=== PATIENT | female | born 1985 | race Caucasian/White ===

== ENCOUNTER 2018-06-29 12:45 | Outpatient (CLI) | payer BC ==
[~2018-06-29] VITALS: Ht 154.9 cm; Wt 62.2 kg
[2018-06-29 13:33] VITALS: BP 97/55; PULSE 82; RESP 18
[2018-06-29 13:36] VITALS: Ht 154.9 cm; Wt 62.2 kg
--- NOTE | 2018-06-29 19:53 | PN ---
Triage Information Date/Time Reason for visit: Generalized itching Weeks of Gestation 34 weeks /Para Diabetes: none Hypertention: none Objective Vital Signs Date Temp Pulse Resp B/P (MAP) Pulse Ox O2 O2 Flow FiO2 Time Delivery Rate 06/29/18 97.9 82 18 97/55 (69) 98 Room Air 13:33 Heart Rate: 120's Heart Rate Comments Reactive Results/Medications Imaging Results BPP 10/27 Disposition: Discharge Assessment/Plan Bile acids drawn in clinic today, result pending Antepartum testing on 07/01/2018. LIZZETH FRANK MD Jun 29, 2018 19:53
== END 2018-06-29 17:45 | disposition home or self-care (01) ==
LOC: L-D 12:45 → OBT 12:45
PROVIDERS: ATTEND Obstetrics & Gynecology
DX: O26.893 Other specified pregnancy related conditions, third trimester (principal); L29.9 Pruritus, unspecified; Z3A.34 34 weeks gestation of pregnancy
CPT/HCPCS: 76815; 76818; 76820; Z7500; G0463

== ENCOUNTER 2018-07-01 09:11 | Outpatient (CLI) | payer BC ==
[~2018-07-01] VITALS: Ht 154.9 cm; Wt 62.6 kg
[2018-07-01] MEDS ORDERED: PNV11TAB PO (09:41)
[2018-07-01 09:42] VITALS: BP 102/57; PULSE 79; Ht 154.9 cm; Wt 62.6 kg
--- NOTE | 2018-07-01 11:53 | TRIAGE ---
OB Triage Datetime Report Generated by CPN: 07/01/2018 11:53 Datetime: 07/01/2018 11:04 Stage of : OB Triage Datetime: 07/01/2018 10:52 Stage of : OB Triage Datetime: 07/01/2018 10:48 Stage of : OB Triage Datetime: 07/01/2018 10:39 Stage of : OB Triage Datetime: 07/01/2018 10:33 Labor Evaluation Frequency: 0 Monitor Mode: External Pattern: Normal: <= 5 Contractions in 10 Minutes Resting Tone [place]: Relaxed Heart Rate FHR Baseline Rate: 135 Monitor Mode: External US Variability: Moderate 6-25 bpm Accelerations: 10X10 Decelerations: None Category: Category I Pain Assessment Pain Scale: 0 Pain Presence: None/Denies Pain Type: N/A Pain Goal: 3 Pain Relief Measures: Comfort Measures Datetime: 07/01/2018 09:51 Stage of : OB Triage Datetime: 07/01/2018 09:34 Stage of : OB Triage Assessment Type: Triage Maternal Assessment Level of Consciousness: Fully Conscious DTR's/Clonus: DTRs 2+; No Clonus Headache: Denies Blurred Vision: No Respiratory Effort: Unlabored; Regular Rhythm; Equal Expansion Breath Sounds, Left: Clear and Equal Breath Sounds, Right: Clear and Equal Nausea/Vomiting: Denies RUQ Epigastric Pain: Denies Facial Edema: None Temperature Route: Axillary Fall Risk Assessment History of Falling: (0) No Secondary Diagnosis: (0) No Ambulatory Aid: (0) Bedrest/Nurse Assist IV Therapy: (0) No Gait: (0) Normal/Bedrest/Immobile Mental Status: (0) Oriented to Own Ability Fall Score: 0 Fall Risk Score Definition: No Risk: No action required Labor Evaluation Frequency: 0 Monitor Mode: External Pattern: Normal: <= 5 Contractions in 10 Minutes Resting Tone [place]: Relaxed Heart Rate FHR Baseline Rate: 140 Monitor Mode: External US Variability: Moderate 6-25 bpm Accelerations: 10X10 Decelerations: None Category: Category I Pain Assessment Pain Scale: 0 Pain Presence: None/Denies Pain Type: N/A Pain Goal: 3 Pain Relief Measures: Comfort Measures Datetime: 07/01/2018 09:32 Time of Arrival: 07/01/2018 09:10 EGA: 35.5 Arrived By: Ambulatory Arrived From: Home Chief Complaint: FOLLOW UP BPP, POSS IUGR/CHOLESTASIS DENIES FEELING LEAKING OR BLEEDING, OCCAS PE RINEAL PAIN Movement: Present Contractions: Denies/Absent Rupture of Membranes: Denies Vaginal Bleeding: None Vaginal Discharge: Denies Recent Sexual Intercouse: Denies Abdominal Trauma: Not Applicable Time Provider Notified: 07/01/2018 09:51 Provider Notified: DELSHAD Initial Plan: MONITOR, BPP, NST Datetime: 06/29/2018 17:45 Stage of : OB Triage Datetime: 06/29/2018 16:38 Stage of : OB Triage Datetime: 06/29/2018 15:10 Comments: PT OFF MONITOR. REACTIVE NST Datetime: 06/29/2018 15:08 Stage of : OB Triage Datetime: 06/29/2018 15:00 Stage of : OB Triage Labor Evaluation Frequency: OCCASIONAL Monitor Mode: External Quality: Mild Resting Tone [place]: Relaxed Heart Rate FHR Baseline Rate: 135 Monitor Mode: External US Variability: Moderate 6-25 bpm Accelerations: 15X15 Decelerations: None Category: Category I Pain Assessment Pain Scale: 0 Pain Presence: None/Denies Pain Type: N/A Vaginal Exam Membrane Status: Intact Datetime: 06/29/2018 14:14 EGA: 35.3 Datetime: 06/29/2018 13:36 Labor Evaluation Frequency: OCCASIONAL Duration (sec)2399: 60-90 Quality: Mild Resting Tone [place]: Relaxed Heart Rate FHR Baseline Rate: 120 Monitor Mode: External US Variability: Moderate 6-25 bpm Accelerations: 15X15 Decelerations: None Category: Category I Pain Assessment Pain Scale: 0 Pain Presence: None/Denies Pain Type: N/A Vaginal Exam Membrane Status: Intact Datetime: 06/29/2018 13:04 Stage of : OB Triage Assessment Type: Triage Maternal Assessment Level of Consciousness: Fully Conscious DTR's/Clonus: DTRs 2+; No Clonus Headache: Frontal Blurred Vision: No Respiratory Effort: Unlabored; Regular Rhythm; Equal Expansion Breath Sounds, Left: Clear and Equal Breath Sounds, Right: Clear and Equal Nausea/Vomiting: Denies RUQ Epigastric Pain: Denies Lower Extremities Edema: None Degree: None Upper Extremities Edema: None Degree: None Facial Edema: None Temperature Route: Oral Fall Risk Assessment History of Falling: (0) No Secondary Diagnosis: (0) No Ambulatory Aid: (0) Bedrest/Nurse Assist IV Therapy: (0) No Gait: (0) Normal/Bedrest/Immobile Mental Status: (0) Oriented to Own Ability Fall Score: 0 Fall Risk Score Definition: No Risk: No action required Pain Assessment Pain Scale: 0 Pain Presence: None/Denies Pain Type: N/A Datetime: 06/29/2018 13:02 Time of Arrival: 06/29/2018 13:02 Arrived By: Ambulatory Arrived From: Office Chief Complaint: GENERALIZED RASH, ZACH-A Movement: Present Contractions: Denies/Absent Rupture of Membranes: Denies Vaginal Bleeding: None Vaginal Discharge: Present Recent Sexual Intercouse: Denies Abdominal Trauma: Not Applicable Patient Complaints: Other Initial Plan: NST, OB U/S WITH EFW AND BPP
--- NOTE | 2018-07-01 14:51 | PN ---
Triage Information Date/Time 07/01/1803/09/1406 Reason for visit: for f/u BPP Weeks of Gestation 35w5d /Para A1 Diabetes: none Hypertention: none Additional information IUGR ? Objective Vital Signs Date Temp Pulse Resp B/P (MAP) Pulse Ox O2 O2 Flow FiO2 Time Delivery Rate 07/01/18 98.3 79 102/57 09:42 (72) Heart Rate: 140's Heart Rate Comments CAT I with one episode of baseline lower 10bpm for 40sec DR avendaño ok to go to her clinic for R/O IUGR from OB triage Results/Medications Imaging Results BPP 10/27 ANJU 10 Disposition: Discharge Assessment/Plan A IUP 35w5d R/O IUGR P to [facility] for measurement to R/O IUGR BROOKLYNN COFFMAN MD Jul 01, 2018 14:51
== END 2018-07-01 11:15 | disposition home or self-care (01) ==
LOC: OBT 09:11 → L-D 09:11 → OBT 11:15
PROVIDERS: ATTEND Obstetrics & Gynecology
DX: O36.8330 Maternal care for abnormalities of the fetal heart rate or rhythm, third trimester, not applicable or unspecified (principal); Z3A.35 35 weeks gestation of pregnancy
CPT/HCPCS: 76818; Z7500; G0463

== ENCOUNTER 2018-07-08 06:55 | Outpatient (CLI) | payer BC ==
[~2018-07-08] VITALS: Ht 152.4 cm; Wt 63.3 kg
[~2018-07-08 06:55] MED LIST: PNV11TAB PO
[2018-07-08 07:59] VITALS: Ht 152.4 cm; Wt 63.3 kg
[2018-07-08 08:00] VITALS: BP 104/56; PULSE 103; RESP 18
[2018-07-08] MEDS ORDERED: LACTATED RINGER'S 1,000 ML IV ONE (08:30)
--- NOTE | 2018-07-08 11:06 | TRIAGE ---
OB Triage Datetime Report Generated by CPN: 07/08/2018 11:05 Datetime: 07/08/2018 10:34 Stage of : OB Triage Datetime: 07/08/2018 10:10 Labor Evaluation Frequency: 0 Monitor Mode: External Pattern: Normal: <= 5 Contractions in 10 Minutes Resting Tone [place]: Relaxed Heart Rate FHR Baseline Rate: 145 Monitor Mode: External US Variability: Moderate 6-25 bpm Accelerations: 10X10 Decelerations: None Category: Category I Pain Assessment Pain Scale: 3 Pain Presence: Constant Pain Location: Perineum Pain Goal: 3 Pain Relief Measures: Comfort Measures Datetime: 07/08/2018 09:25 Stage of : OB Triage Datetime: 07/08/2018 09:17 Stage of : OB Triage Datetime: 07/08/2018 08:54 Labor Evaluation Frequency: 0 Monitor Mode: External Pattern: Normal: <= 5 Contractions in 10 Minutes Resting Tone [place]: Relaxed Heart Rate FHR Baseline Rate: 145 Monitor Mode: External US Variability: Moderate 6-25 bpm Accelerations: 10X10 Decelerations: None Category: Category I Pain Assessment Pain Scale: 4 Pain Presence: Intermittent Pain Type: Cramping Pain Location: Perineum Pain Goal: 3 Pain Relief Measures: Comfort Measures Datetime: 07/08/2018 08:06 Stage of : OB Triage Assessment Type: Triage Maternal Assessment Level of Consciousness: Fully Conscious DTR's/Clonus: DTRs 2+; No Clonus Headache: Denies Blurred Vision: No Respiratory Effort: Unlabored; Regular Rhythm; Equal Expansion Breath Sounds, Left: Clear and Equal Breath Sounds, Right: Clear and Equal Nausea/Vomiting: Denies RUQ Epigastric Pain: Denies Facial Edema: None Temperature Route: Axillary Fall Risk Assessment History of Falling: (0) No Secondary Diagnosis: (0) No Ambulatory Aid: (0) Bedrest/Nurse Assist IV Therapy: (0) No Gait: (0) Normal/Bedrest/Immobile Mental Status: (0) Oriented to Own Ability Fall Score: 0 Fall Risk Score Definition: No Risk: No action required Labor Evaluation Frequency: 0 Monitor Mode: External Pattern: Normal: <= 5 Contractions in 10 Minutes Resting Tone [place]: Relaxed Heart Rate FHR Baseline Rate: 155 Monitor Mode: External US Variability: Moderate 6-25 bpm Accelerations: 10X10 Decelerations: None Pain Assessment Pain Scale: 5 Pain Presence: Intermittent Pain Type: Cramping Pain Location: Perineum Pain Goal: 3 Pain Relief Measures: Comfort Measures Datetime: 07/08/2018 08:04 Time of Arrival: 07/08/2018 06:51 EGA: 35.6 Arrived By: Ambulatory Arrived From: Home Chief Complaint: c/o pelvic pain, urgency to urinate, headache Movement: Present Contractions: Denies/Absent Rupture of Membranes: Denies Vaginal Bleeding: None Vaginal Discharge: Denies Recent Sexual Intercouse: Denies Abdominal Trauma: Not Applicable Patient Complaints: Headache Time Provider Notified: 07/08/2018 07:50 Provider Notified: delshad Initial Plan: monitor, u/a c_s, cbc, bpp, cmp, uric acid, iv hydration Datetime: 07/08/2018 07:51 Stage of : OB Triage Datetime: 07/08/2018 07:48 Stage of : OB Triage Datetime: 07/01/2018 11:48 Time of Arrival: 07/08/2018 06:51 EGA: 35.6 Datetime: 07/01/2018 09:34 Fall Score: 0 Fall Risk Score Definition: No Risk: No action required Datetime: 07/01/2018 09:32 EGA: 34.6 Datetime: 06/29/2018 14:14 EGA: 34.4 Datetime: 06/29/2018 13:04 Fall Score: 0 Fall Risk Score Definition: No Risk: No action required
--- NOTE | 2018-07-10 23:56 | PN ---
Triage Information Date/Time late entry for service rendered on 07/08/18 Reason for visit: Abd/pelvic pain Weeks of Gestation 35w6d /Para Diabetes: none Hypertention: none Additional information urinary urgency diff to urinate headache Objective Vital Signs Date Temp Pulse Resp B/P (MAP) Pulse Ox O2 O2 Flow FiO2 Time Delivery Rate 07/08/18 98.9 103 18 104/56 08:00 (72) Heart Rate: 150's (165) Results/Medications Result Diagram: 07/08/1882607/08/18825 Medications IV hydration Imaging Results BPP 8 ANJU 12.6 Disposition: Discharge Assessment/Plan A IUP 35w6d UTI P discharge home with Rx cephalexin 500mg q6hr #28 f/u on wed at her OB clinic BROOKLYNN COFFMAN MD Jul 10, 2018 23:56
== END 2018-07-08 10:50 | disposition home or self-care (01) ==
LOC: L-D 06:55 → OBT 06:55
PROVIDERS: ATTEND Obstetrics & Gynecology
DX: O23.43 Unspecified infection of urinary tract in pregnancy, third trimester (principal); Z3A.35 35 weeks gestation of pregnancy
CPT/HCPCS: 36415; 76818; 80053; 81001; 84560; 85025; 87086; 96360; 96361; J7120; Z7500; G0463

== ENCOUNTER 2018-08-07 10:39 | Outpatient (CLI) | payer BC ==
[~2018-08-07] VITALS: Ht 154.9 cm; Wt 62.3 kg
[2018-08-07 10:44] VITALS: Ht 154.9 cm; Wt 62.3 kg
[2018-08-07 10:45] VITALS: BP 108/69; PULSE 75; RESP 17
--- NOTE | 2018-08-07 11:47 | TRIAGE ---
OB Triage Datetime Report Generated by CPN: 08/07/2018 11:47 Datetime: 08/07/2018 11:42 Labor Evaluation Pattern: Normal: <= 5 Contractions in 10 Minutes Resting Tone [place]: Relaxed Contraction Comments: no uc Heart Rate FHR Baseline Rate: 135 Monitor Mode: External US Variability: Moderate 6-25 bpm Accelerations: 15X15 Decelerations: None Category: Category I Pain Assessment Pain Presence: None/Denies Datetime: 08/07/2018 11:39 Vaginal Exam Dilatation (cms): 0.0 Exam By: wliu Datetime: 08/07/2018 10:48 Assessment Type: Triage Maternal Assessment Level of Consciousness: Fully Conscious DTR's/Clonus: DTRs 2+; No Clonus Headache: Denies Blurred Vision: No Respiratory Effort: Unlabored; Regular Rhythm; Equal Expansion Breath Sounds, Left: Clear and Equal Breath Sounds, Right: Clear and Equal Nausea/Vomiting: Denies RUQ Epigastric Pain: Denies Lower Extremities Edema: None Degree: None Upper Extremities Edema: None Degree: None Facial Edema: None Fall Risk Assessment History of Falling: (0) No Secondary Diagnosis: (0) No Ambulatory Aid: (0) Bedrest/Nurse Assist IV Therapy: (0) No Gait: (0) Normal/Bedrest/Immobile Mental Status: (0) Oriented to Own Ability Fall Score: 0 Fall Risk Score Definition: No Risk: No action required Datetime: 08/07/2018 10:47 Time of Arrival: 08/07/2018 10:34 EGA: 40.1 Arrived By: Ambulatory Arrived From: Home Chief Complaint: to ob triage with prescription, u/s for bpp, efw Movement: Present Contractions: Denies/Absent Rupture of Membranes: Denies Vaginal Bleeding: None Vaginal Discharge: Denies Recent Sexual Intercouse: Denies Abdominal Trauma: Not Applicable Patient Complaints: None Time Provider Notified: 08/07/2018 11:37 Provider Notified: Initial Plan: efw, bpp Datetime: 07/08/2018 08:06 Fall Score: 0 Fall Risk Score Definition: No Risk: No action required Datetime: 07/08/2018 08:04 EGA: 35.6 Datetime: 07/01/2018 11:48 EGA: 35.6 Datetime: 07/01/2018 09:34 Fall Score: 0 Fall Risk Score Definition: No Risk: No action required Datetime: 07/01/2018 09:32 EGA: 34.6 Datetime: 06/29/2018 14:14 EGA: 34.4 Datetime: 06/29/2018 13:04 Fall Score: 0 Fall Risk Score Definition: No Risk: No action required
--- NOTE | 2018-08-07 11:47 | PN ---
Triage Information Date/Time Reason for visit: postdate for NST BPP Weeks of Gestation 40+ /Para 2/1 Diabetes: none Hypertention: none Objective Vital Signs Date Temp Pulse Resp B/P (MAP) Pulse Ox O2 O2 Flow FiO2 Time Delivery Rate 08/07/18 97.9 75 17 108/69 10:45 (82) Heart Rate: 140's Contractions: None Disposition: Discharge Assessment/Plan BPP 12/29 CX clsoed Precautions discussed Questions answered NST BPP every 2 days management as her private XIAO Bentley M.D. August 07, 2018 11:47
== END 2018-08-07 11:51 | disposition home or self-care (01) ==
LOC: OBT 10:39 → L-D 10:40 → OBT 11:51
PROVIDERS: ATTEND Obstetrics & Gynecology
DX: O48.0 Post-term pregnancy (principal); O36.8330 Maternal care for abnormalities of the fetal heart rate or rhythm, third trimester, not applicable or unspecified; Z3A.40 40 weeks gestation of pregnancy
CPT/HCPCS: 76815; 76818; Z7500; G0463

== ENCOUNTER 2018-08-10 11:37 | Outpatient (CLI) | payer BC ==
[~2018-08-10] VITALS: Ht 154.9 cm; Wt 61.6 kg
[2018-08-10 12:01] VITALS: Ht 154.9 cm; Wt 61.6 kg
[2018-08-10 12:02] VITALS: BP 113/62
--- NOTE | 2018-08-10 13:26 | TRIAGE ---
OB Triage Datetime Report Generated by CPN: 08/10/2018 13:25 Datetime: 08/10/2018 12:55 Stage of : OB Triage Labor Evaluation Frequency: 0 Monitor Mode: External Pattern: Normal: <= 5 Contractions in 10 Minutes Resting Tone [place]: Relaxed Heart Rate FHR Baseline Rate: 135 Variability: Moderate 6-25 bpm Accelerations: 15X15 Decelerations: None Category: Category I Datetime: 08/10/2018 12:11 Labor Evaluation Frequency: 0 Monitor Mode: External Pattern: Normal: <= 5 Contractions in 10 Minutes Resting Tone [place]: Relaxed Heart Rate FHR Baseline Rate: 135 Variability: Moderate 6-25 bpm Accelerations: 10X10 Category: Category II Datetime: 08/10/2018 11:50 Stage of : OB Triage Assessment Type: Triage Maternal Assessment Level of Consciousness: Fully Conscious DTR's/Clonus: DTRs 2+; No Clonus Headache: Denies Blurred Vision: No Respiratory Effort: Unlabored; Regular Rhythm; Equal Expansion Breath Sounds, Left: Clear and Equal Breath Sounds, Right: Clear and Equal Nausea/Vomiting: Denies RUQ Epigastric Pain: Denies Lower Extremities Edema: None Degree: None Upper Extremities Edema: None Degree: None Facial Edema: None Fall Risk Assessment History of Falling: (0) No Secondary Diagnosis: (0) No Ambulatory Aid: (0) Bedrest/Nurse Assist IV Therapy: (0) No Gait: (0) Normal/Bedrest/Immobile Mental Status: (0) Oriented to Own Ability Fall Score: 0 Fall Risk Score Definition: No Risk: No action required Monitor Mode: External Monitor Mode: External US Pain Assessment Pain Scale: 0 Pain Presence: None/Denies Datetime: 08/10/2018 11:49 Time of Arrival: 08/10/2018 11:27 EGA: 40.4 Arrived By: Ambulatory Arrived From: Dr. Bauer Chief Complaint: SENT FOR NST BPP FOR POST DATES Movement: Present Contractions: Denies/Absent Rupture of Membranes: Denies Vaginal Bleeding: None Vaginal Discharge: Denies Recent Sexual Intercouse: Denies Abdominal Trauma: Not Applicable Patient Complaints: None Time Provider Notified: 08/10/2018 13:01 Provider Notified: DR. FRANK Initial Plan: NST BPP BPP Datetime: 08/07/2018 11:42 Accelerations: 10X10 Category: Category II Datetime: 08/07/2018 10:48 Fall Score: 0 Fall Risk Score Definition: No Risk: No action required Datetime: 08/07/2018 10:47 EGA: 40.1 Datetime: 07/08/2018 08:06 Fall Score: 0 Fall Risk Score Definition: No Risk: No action required Datetime: 07/08/2018 08:04 EGA: 35.6 Datetime: 07/01/2018 11:48 EGA: 35.6 Datetime: 07/01/2018 09:34 Fall Score: 0 Fall Risk Score Definition: No Risk: No action required Datetime: 07/01/2018 09:32 EGA: 34.6 Datetime: 06/29/2018 14:14 EGA: 34.4 Datetime: 06/29/2018 13:04 Fall Score: 0 Fall Risk Score Definition: No Risk: No action required
--- NOTE | 2018-08-10 19:16 | PN ---
Triage Information Date/Time Reason for visit: postdate Weeks of Gestation 40 weeks and 4 days /Para Diabetes: none Hypertention: none Objective Vital Signs Date Temp Pulse Resp B/P (MAP) Pulse Ox O2 O2 Flow FiO2 Time Delivery Rate 08/10/18 98.6 113/62 12:02 (79) Heart Rate: 120's Exam cervix closed Results/Medications Imaging Results BPP 10/27 Disposition: Discharge Assessment/Plan Patient is offered the option of induction of labor. Patient declines and would like to wait for active labor Follow up on 08/12/2018. LIZZETH FRANK MD August 10, 2018 19:16
== END 2018-08-10 13:23 | disposition home or self-care (01) ==
LOC: OBT 11:37 → L-D 11:38 → OBT 13:23
PROVIDERS: ATTEND Obstetrics & Gynecology
DX: O48.0 Post-term pregnancy (principal); Z3A.40 40 weeks gestation of pregnancy
CPT/HCPCS: 76818; Z7500; G0463

== ENCOUNTER 2018-08-12 17:15 | Inpatient (IN) | payer BC ==
[~2018-08-12] VITALS: Ht 154.9 cm; Wt 62.4 kg
[2018-08-12 17:51] VITALS: BP 103/66; PULSE 74; RESP 18; Ht 154.9 cm; Wt 62.4 kg
[2018-08-12] MEDS ORDERED: OXYTOCIN 30 UNITS/LR 500 ML IV PRN (18:30)
[2018-08-12] MEDS ORDERED: METHYLERGONOVINE 0.2 MG INJ IM PRN (18:30)
[2018-08-12] MEDS ORDERED: BUTORPHANOL 2 MG INJ IV PRN ×2 (18:30)
[2018-08-12] MEDS ORDERED: LIDOCAINE 1% (MPF) 30 ML INJ INJ PRN (18:30)
[2018-08-12] MEDS ORDERED: OXYTOCIN 30 UNITS/LR 500 ML IV SCH ×3 (18:30→23:00)
[2018-08-12] MEDS ORDERED: AMPICILLIN 2 GM/NS (PMX) 100 ML IV ONE (18:30)
[2018-08-12] MEDS ORDERED: CARBOPROST 250 MCG INJ IM PRN (18:30)
[2018-08-12] MEDS ORDERED: MISOPROSTOL 200 MCG TAB PR PRN (18:30)
[2018-08-12] MEDS: LACTATED RINGER'S 1,000 ML IV SCH ×2 (19:01→21:25)
--- NOTE | 2018-08-12 20:18 | HP ---
Date/Time of Note Date/Time of Note DATE: 08/12/18 TIME: 20:16 OB - History Hx of Present Chief Complaint: leakage of fluid Estimated Due Date: August 06, 2018 : 2 Para: 1 Spontaneous : 0 Therapeutic : 0 Care: Good Care Ultrasounds: Normal mid trimester US Obstetrical Complications: None Medical Complications: None Past Family/Social History * Past Medical, Surgical, Family and Obstetric Histories reviewed from chart. GBS Status: Positive OB Admission Exam Vital Signs Vital Signs Vital Signs Date Temp Pulse Resp B/P (MAP) Pulse Ox O2 O2 Flow FiO2 Time Delivery Rate 08/12/18 98.0 74 18 103/66 17:51 (78) Physical Exam HEENT: WNL Heart: Rhythm Normal Lungs: Clear, Equal Abdomen: WNL Extremities: Normal Reflexes: Normal Cervical Dilatation: 1cm Effacement: 50% Station: -2 Membranes: Intact Heart Rate: 120's Accelerations: Accelerations Present Decelerations: No Decelerations Varibility: Moderate Last 72 hours Lab Results CBC & BMP 08/12/18 19:19 OB Assessment/Plan Reason for admission: induction of labor Induction Method: per Misoprostol Protocol LIZZETH FRANK MD August 12, 2018 20:18
[2018-08-12] MEDS ORDERED: MISOPROSTOL 50 MCG CAPSULE PO SCH (21:00)
[2018-08-12] MEDS: AMPICILLIN 1 GM/NS (PMX) 50 ML IV SCH (23:44)
[2018-08-13] MEDS: AMPICILLIN 1 GM/NS (PMX) 50 ML IV SCH ×2 (03:33→07:40)
[2018-08-13] MEDS: LACTATED RINGER'S 1,000 ML IV SCH ×2 (05:21→06:30)
--- NOTE | 2018-08-13 06:05 | PREAC ---
Date/Time of Note Date/Time of Note DATE: 08/13/18 TIME: 06:04 Anesthesia Eval and Record Evaluation Time Pre-Procedure Interview DATE: 08/13/18 TIME: 06:04 Age 32 Sex female NPO: 8 hrs Preoperative diagnosis IUP Planned procedure L&D Epidural Past Medical History Past Medical History: None Surgery & Anesthesia Issues No known issue Meds Anticoagulation: No Beta Riccardo within 24 hr: No Reason Beta Riccardo not given: Pt. not on B-Riccardo Reported Medications [id number] ( 19) 1 Each Tablet, 1 TAB PO DAILY, TAB 07/01/18 Current Medications Lactated Ringer's 1,000 ml @ 125 mls/hr Q8H IV Last administered on 08/13/18at 05:21; Admin Dose 125 MLS/HR; Start 08/12/18 at 18:05 Ampicillin 50 ml @ 100 mls/hr Q4H IV Last administered on 08/13/18at 03:33; Admin Dose 100 MLS/HR; Start 08/12/18 at 22:30 Butorphanol Tartrate (Stadol) 1 mg Q2H PRN IV .PAIN SCALE 1-5; Start 08/12/18 at 18:30 Butorphanol Tartrate (Stadol) 2 mg Q2H PRN IV .PAIN SCALE 6-10; Start 08/12/18 at 18:30 Lidocaine (Xylocaine 1% (Mpf)) 30 ml ONCE PRN INJ .EPISIOTOMY; Start 08/12/18 at 18:30 Oxytocin/Lactated Ringer's 500 ml @ 500 mls/hr ONCE POST IV ; Start 08/12/18 at 18:30 Oxytocin/Lactated Ringer's 500 ml @ 125 mls/hr POST IV ; Start 08/12/18 at 18:30 Oxytocin/Lactated Ringer's 500 ml @ 0 mls/hr ONCE PRN IV .VAGINAL BLEEDING; Start 08/12/18 at 18:30 Methylergonovine Maleate (Methergine) 0.2 mg ONCE PRN IM .VAGINAL BLEEDING; Start 08/12/18 at 18:30 Carboprost Tromethamine (Hemabate) 250 mcg ONCE PRN IM .VAGINAL BLEEDING; Start 08/12/18 at 18:30 Misoprostol (Cytotec) 1,000 mcg ONCE PRN TX .VAGINAL BLEEDING; Start 08/12/18 at 18:30 Misoprostol (Cytotec 50 Mcg Capsule) 50 mcg Q4 PO ; Start 08/12/18 at 21:00 Oxytocin/Lactated Ringer's 500 ml @ 0 mls/hr FOR INDUCTION IV Last administered on 08/12/18at 23:57; Admin Dose 2 MLS/HR; Start 08/12/18 at 23:00 Meds reviewed: Yes Allergies Coded Allergies: No Known Allergy (Unverified , 06/29/18) Allergies Reviewed: Yes Labs/Studies Labs Reviewed: Reviewed by anesthesiologist Result Diagram: 08/12/18 1919 Laboratory Tests 08/12/18 19:19 Blood Bank Test 08/12/18 19:19 Antibody Screen NEGATIVE Blood Type B POSITIVE Rh Immune Globulin Candidate NO test: Positive Studies: ECG Pre-procedure Exam Last vitals Vital Signs Date Temp Pulse Resp B/P (MAP) Pulse Ox O2 O2 Flow FiO2 Time Delivery Rate 08/12/18 98.0 74 18 103/66 17:51 (78) Airway: Adequate mouth opening, Adequate thyromental dist Mallampati: Mallampati II Teeth: Normal Lung: Normal Heart: Normal ASA Physical Status ASA physical status: 2 Emergency: None Planned Anesthetic Neuraxial: Epidural Planned Pain Management Epidural Pre-operative Attestations Prior to commencing anesthesia and surgery, the patient was re-evaluated, there was verification of: *The patient's identity *The results of appropriate recent lab work and preoperative vital signs *The above evaluation not changing prior to induction *Anesthetic plan, risk benefits, alternative and complications discussed with patient/family; questions answered; patient/family understands, accepts and wishes to proceed. FREDDY MCKINLEY MD August 13, 2018 06:05
[2018-08-13] MEDS ORDERED: DIPHENHYDRAMINE 50 MG INJ IV PRN (06:30)
[2018-08-13] MEDS ORDERED: FENTAnyl 2MCG/ML-ROPIV 0.2% 100 ML BAG EPI SCH (06:30)
[2018-08-13] MEDS ORDERED: ONDANSETRON 4 MG INJ IV PRN (06:30)
[2018-08-13] MEDS ORDERED: NALOXONE (0.4 MG/ML) INJ IV PRN (06:30)
--- NOTE | 2018-08-13 06:55 | PAC ---
Date/Time of Note Date/Time of Note DATE: 08/13/18 TIME: 06:54 Post-Anesthesia Notes Post-Anesthesia Note Last documented vital signs Vital Signs Date Temp Pulse Resp B/P (MAP) Pulse Ox O2 O2 Flow FiO2 Time Delivery Rate 08/12/18 98.0 74 18 103/66 17:51 (78) Activity: WNL Respiratory function: WNL Cardiovascular function: WNL Mental status: Baseline Pain reasonably controlled: Yes Hydration appropriate: Yes Nausea/Vomiting absent: Yes Comments BP:119/67, P:78, Spo2:100%, T:98,7 FREDDY MCKINLEY MD August 13, 2018 06:55
--- NOTE | 2018-08-13 10:14 | LDN ---
Date/Time of Note Date/Time of Note DATE: 08/13/18 TIME: 10:11 Delivery Summary Weeks of Gestation 41 weeks Placenta Delivered: Spontaneously Meconium: none Episiotomy: No Perineal laceration: 0 Anesthesia type: Epidural Estimated blood loss: 100 Sponge & Needle done & correct: Yes All needle counts correct: Yes Any foreign bodies felt in the: No Infant Delivery Information Sex Infant Sex: female Apgars 1 Minute: 9 5 Minute: 9 Suctioning Nose & mouth suctioned at selvin: No Delee suction performed: No Umbilical Cord Umbilical cord with: 3 Vessels Cord presentations: no nuchal cord Cord Blood was obtained: Yes Mother & Baby Disposition Disposition Mom & Baby to Maternity; Good: Yes LIZZETH FRANK MD August 13, 2018 10:14
[2018-08-13 12:10] VITALS: BP 101/70; PULSE 57; RESP 18
[2018-08-13] MEDS ORDERED: LACTATED RINGER'S 1,000 ML IV* SCH (12:29)
[2018-08-13] MEDS ORDERED: WITCH HAZEL/GLYCERIN PAD PR PRN (12:30)
[2018-08-13] MEDS ORDERED: CARBOPROST 250 MCG INJ IM PRN (12:30)
[2018-08-13] MEDS ORDERED: METHYLERGONOVINE 0.2 MG INJ IM PRN (12:30)
[2018-08-13] MEDS ORDERED: OXYTOCIN 30 UNITS/LR 500 ML IV PRN (12:30)
[2018-08-13] MEDS ORDERED: HYDROCODONE/APAP (5/325) TAB PO PRN (12:30)
[2018-08-13] MEDS ORDERED: MISOPROSTOL 200 MCG TAB PR PRN (12:30)
[2018-08-13] MEDS ORDERED: DIBUCAINE 1% 30 GM OINT TOP PRN (12:30)
[2018-08-13] MEDS ORDERED: BENZOCAINE 20% 56 ML SPRAY TOP PRN (12:30)
[2018-08-13] MEDS: IBUPROFEN 600 MG TAB PO SCH ×2 (12:30→18:00)
[2018-08-13] MEDS ORDERED: ACETAMINOPHEN 325 MG TAB PO PRN (12:30)
[2018-08-13 16:00] VITALS: BP 105/70; PULSE 68; RESP 18
[2018-08-13 20:30] VITALS: BP 97/54; PULSE 68; RESP 18
[2018-08-13] MEDS: SENNA/DOCUSATE NA (8.6MG/50MG) TAB PO SCH (21:00)
[2018-08-13] MEDS: FERROUS SULFATE (EC) 325 MG TAB PO SCH (21:00)
[2018-08-14 00:15] VITALS: BP 95/52; PULSE 62; RESP 18
[2018-08-14 04:01] VITALS: BP 104/72; PULSE 58; RESP 18
[2018-08-14] MEDS: IBUPROFEN 600 MG TAB PO SCH ×5 (06:00→23:58)
[2018-08-14 08:00] VITALS: BP 91/62; PULSE 52; RESP 18
[2018-08-14] MEDS: SENNA/DOCUSATE NA (8.6MG/50MG) TAB PO SCH ×2 (09:00→21:00)
[2018-08-14] MEDS: FERROUS SULFATE (EC) 325 MG TAB PO SCH ×2 (10:45→21:27)
--- NOTE | 2018-08-14 14:31 | DS ---
Date/Time of Note Date/Time of Note DATE: 08/14/18 TIME: 14:31 Obstetrical Discharge Record Final Diagnosis Final Diagnosis: Term delivered Vaginal Delivery Obstetrical Delivery: Spontaneous Complications Augmentation: Yes Condition on Discharge Physical Assessment Voiding: Yes Bowel Movement: Yes Breast: Soft, non-tender, Filling Fundus: Firm Calf Tenderness: No Patient Condition: Stable LIZZETH FRANK MD August 14, 2018 14:31
[2018-08-14 16:00] VITALS: BP 101/61; PULSE 63; RESP 18
[2018-08-14 20:15] VITALS: BP 113/55; PULSE 58; RESP 19
[2018-08-15 03:10] VITALS: BP 98/61; PULSE 61; RESP 19
[2018-08-15] MEDS: IBUPROFEN 600 MG TAB PO SCH ×2 (05:40→12:00)
[2018-08-15 08:00] VITALS: BP 100/51; PULSE 53; RESP 18
[2018-08-15] MEDS ORDERED: DIPHTH/TET/ACEL PERTUSS (ADULT) 0.5 ML VIAL IM* ONE (09:00)
[2018-08-15] MEDS: SENNA/DOCUSATE NA (8.6MG/50MG) TAB PO SCH (09:00)
[2018-08-15] MEDS: FERROUS SULFATE (EC) 325 MG TAB PO SCH (09:43)
--- NOTE | 2018-08-16 13:16 | DELSUM ---
Delivery Summary A-C Datetime Report Generated by CPN: 08/16/2018 13:16 DELIVERY PERSONNEL Public Address Servicer: Soleimani, Qing MATERNAL INFORMATION Delivery Anesthesia: Epidural Delivery QBL (ml): 100 Placenta Cultured: No Maternal Complications: None LABOR SUMMARY EDC: 08/06/2018 00:00 No. Babies in Womb: 1 Attempted: No Labor Anesthesia: None LABOR INFORMATION Reason for Induction: Postterm Onset of Labor: 08/12/2018 19:30 Complete Dilatation: 08/13/2018 08:40 Oxytocin: Induction Group B Beta Strep: Positive Antibiotics # of Doses: 2 Antibiotics Time of Last Dose: 08/13/2018 07:30 Steroids Given: None Reason Steroids Not Administered: Not Applicable MEMBRANES Membranes Rupture Method: Spontaneous Rupture of Membranes: 08/13/2018 08:40 Length of Rupture (hr): 1.30 Amniotic Fluid Color: Clear Amniotic Fluid Amount: Moderate Amniotic Fluid Odor: None STAGES OF LABOR Stage 1 hr: 13 Stage 1 min: 10 Stage 2 hr: 1 Stage 2 min: 18 Stage 3 hr: 0 Stage 3 min: 5 Total Time in Labor hr: 14 Total Time in Labor min: 33 VAGINAL DELIVERY Episiotomy: None Laceration Extension: N/A Laceration Type: None Laceration Repair: Not Applicable Initial Vag Sponge Count: 10 Final Vag Sponge Count: 10 Initial Vag Sharps Count: 1 Final Vag Sharps Count: 1 Sponge Count Correct: Yes; Vaginal Sweep Performed Sharps Count Correct: Yes BABY A INFORMATION Delivery Date/Time: 08/13/2018 09:58 Method of Delivery: Vaginal Born in Route : No : N/A Forceps: N/A Vacuum Extraction: N/A Shoulder Dystocia : No SHOULDER DYSTOCIA BABY A Infant Delivery Date/Time: 08/13/2018 09:58 PRESENTATION/POSITION BABY A Presentation: Cephalic Cephalic Presentation: Vertex Vertex Position: Left Occipital Anterior Breech Presentation: N/A PLACENTA INFORMATION BABY A Placenta Delivery Time : 08/13/2018 10:03 Placenta Method of Delivery: Spontaneous Placenta Status: Delivered SCORES BABY A Heart Rate 1 min: >100 bpm Resp Effort 1 min: Good Cry Reflex Irritability 1 min: Cough/Sneeze/Pulls Away Muscle Tone 1 min: Active Motion Color 1 min: Body [place], Extremit Blue Resuscitation Effort 1 min: Tactile Stimulation SCORE 1 MIN: 9 Heart Rate 5 min: >100 bpm Resp Effort 5 min: Good Cry Reflex Irritability 5 min: Cough/Sneeze/Pulls Away Muscle Tone 5 min: Active Motion Color 5 min: Body [place], Extremit Blue Resuscitation Effort 5 min: Tactile Stimulation SCORE 5 MIN: 9 INFANT INFORMATION BABY A Gestational Age at Delivery: 41.0 Gestational Status: Late Term- 41- 41.6 Weeks Infant Outcome : Liveborn Infant Condition : Stable Sex: Female IDENTIFICATION/MEDS BABY A ID Band Number: [id number] ID Band Location: Right Leg; Left Arm Sensor Number: [id number] Sensor Location : Cord Clamp Vitamin K Given : Not Given; Deferred by Parents Erythromycin Given: Deferred by Parents; Not Given WEIGHT/LENGTH BABY A Infant Birthweight (gm): 3250 Weight (lb): 7 Weight (oz): 3 Infant Length (in): 20.00 Length (cm): 50.80 CORD INFORMATION BABY A No. Cord Vessels: 3 Nuchal Cord : N/A Cord Blood Taken: Yes Suction: Mouth ASSESSMENT BABY A Infant Complications: None Physical Findings at Delivery: Within Normal Limits Respirations: Appears Normal [employer] Director/ALS Called : No Care By: MIR Longo Transferred To: Remains with Mother
== END 2018-08-15 13:15 | disposition home or self-care (01) | DRG 807 ==
LOC: OBT 17:15 → L-D 17:16 → OBT 18:05 → L-D 18:05 → PP1 08-13 12:11
PROVIDERS: ADMIT Obstetrics & Gynecology; ATTEND Obstetrics & Gynecology
PROC: 10E0XZZ Delivery of Products of Conception, External Approach (ICD-10-PCS; principal; 2018-08-13)
DX: O48.0 Post-term pregnancy (principal); O99.824 Streptococcus B carrier state complicating childbirth; Z37.0 Single live birth; Z3A.41 41 weeks gestation of pregnancy
CPT/HCPCS: 62322; 76818; 85025; 85610; 85730; 86592; 86850; 86900; 86901; 87340; G0463; J0290; J2590; J3010; J7120